=== PATIENT | female | born 1980 | race Caucasian/White ===

== ENCOUNTER 2017-08-07 12:01 | Emergency (ER) | payer MEDICAID ==
[~2017-08-07] VITALS: Ht 165.1 cm; Wt 93.0 kg
[2017-08-07 12:03] VITALS: BP 122/93
== END 2017-08-07 12:40 | disposition home or self-care (01) ==
LOC: ED 12:01
DX: M25.532 Pain in left wrist (principal)

== ENCOUNTER 2018-12-03 22:01 | Emergency (ER) | payer MEDICAID ==
[~2018-12-03] VITALS: Ht 165.1 cm; Wt 99.8 kg
[2018-12-03 22:06] VITALS: Ht 165.1 cm; Wt 99.8 kg
[2018-12-03 23:42] LABS: CALCIUM 8.5 mg/dL (8.5-10.1); CARBON DIOXIDE 28.8 mmol/L (21-32); CHLORIDE SERUM 103 mmol/L (98-107); CREATININE SERUM 0.6 mg/dL (0.6-1.0); GFR1 > 60 mL/min; GLUCOSE SERUM 107 mg/dL (74-106); POTASSIUM SERUM 3.5 mmol/L (3.5-5.1); SODIUM SERUM 139 mmol/L (136-145)
[2018-12-03 23:43] LABS: ALBUMIN 3.3 g/dL (3.4-5.0); ALKALINE PHOSPHATASE 78 U/L (46-116); ALT/SGPT 26 U/L (14-59); AST/SGOT 19 U/L (15-37); BILIRUBIN TOTAL 0.2 mg/dL (0.20-1.00); LIPASE 149 IU/L (73-393); TOTAL PROTEIN, SERUM 6.9 g/dL (6.4-8.2)
[2018-12-04 00:05] LABS: BASOPHIL % 0.3 % (0-2); PLATELET COUNT 313 x10^3mcL (130-400)
[2018-12-04 00:09] LABS: RED CELL DISTRIBUTION WIDTH 15.3 % (11.5-14.5)
[2018-12-04 00:25] VITALS: BP 128/69
== END 2018-12-04 00:25 | disposition home or self-care (01) ==
LOC: ED 22:01
PROVIDERS: Emergency Medicine
DX: K29.70 Gastritis, unspecified, without bleeding (principal)
CPT/HCPCS: 36415

== ENCOUNTER 2019-01-26 20:29 | Emergency (ER) | payer MEDICAID ==
[~2019-01-26] VITALS: Ht 172.7 cm; Wt 102.1 kg
[2019-01-26 20:44] VITALS: BP 124/73
== END 2019-01-27 00:57 | disposition home or self-care (01) ==
LOC: ED 20:29
DX: J40 Bronchitis, not specified as acute or chronic (principal); J06.9 Acute upper respiratory infection, unspecified; Z98.890 Other specified postprocedural states